=== PATIENT | female | born 1960 | race Caucasian/White ===

== ENCOUNTER → 2018-11-01 11:54 | Outpatient (CLI) | payer OTHER, MEDICAID, SELFPAY | PROVIDERS: PCP Family Medicine; Visit Provider Family Medicine | DX: E03.9 Hypothyroidism, unspecified (principal) | CPT/HCPCS: 36415; 84443 ==

== ENCOUNTER → 2018-11-18 10:50 | Outpatient (CLI) | payer OTHER, MEDICAID, SELFPAY ==
--- NOTE | 2018-11-18 10:51 | DI.MG.S_ITS ---
BILATERAL DIGITAL SCREENING MAMMOGRAM 3D/2D WITH CAD: 11/18/2018 CLINICAL: Routine screening. Family history of breast cancer. Comparison is made to exams dated: 11/18/2018 mammogram, 02/14/2017 mammogram, 02/08/2017 mammogram, and 12/14/2014 mammogram - [facility]. The tissue of both breasts is heterogeneously dense. This may lower the sensitivity of mammography. Current study was also evaluated with a Computer Aided Detection (CAD) system. No significant masses, calcifications, or other findings are seen in either breast. There has been no significant interval change. IMPRESSION: NEGATIVE There is no mammographic evidence of malignancy. A 1 year screening mammogram is recommended. This exam was interpreted at Station ID: [id number]. NOTE: For mammograms, a report in lay terms will be sent to the patient. Approximately 15% of breast malignancies will not be visualized mammographically. In the management of a palpable breast mass, a negative mammogram must not discourage biopsy of a clinically suspicious lesion. Electronically Signed By: Wil ty/ansley:11/18/2018 12:05:19 letter sent: Normal Exam ACR BI-RADS Category 1: Negative [id number]
== END ==
PROVIDERS: PCP Family Medicine; Visit Provider Family Medicine
DX: Z12.31 Encounter for screening mammogram for malignant neoplasm of breast (principal); Z80.3 Family history of malignant neoplasm of breast
CPT/HCPCS: 77063; 77067

== ENCOUNTER 2019-01-25 13:56 | Emergency (ER) | payer OTHER, MEDICAID, SELFPAY ==
[2019-01-25 14:05] VITALS: BP 128/88; PULSE 74; RESP 13; TEMP 37.1; O2SAT 99
--- NOTE | 2019-01-25 14:31 | ED.SOB ---
HPI - SOB/Dyspnea General Chief Complaint: Shortness of Breath/Dyspnea Stated Complaint: Inhaled a piece of hay Time Seen by Provider: 01/25/19 14:04 Source: patient Mode of arrival: ambulatory Limitations: no limitations History of Present Illness The patient is a 58-year-old female who states that she inhaled a piece of hay, 3 days ago. She feels that she still has some discomfort all in her neck and is worse whenever she takes a deep breath. She says she definitely inhaled she took a deep breath and felt something go down. She denies any fever or productive cough. She has no shortness of breath. MD Complaint: pain with inspiration Related Data Home Medications Medication Instructions Recorded Confirmed lamotrigine [Lamictal] 5 mg PO #0 02/27/17 11/15/18 acyclovir 400 mg tablet 800 mg PO 5XD 02/19/18 11/15/18 dextroamphetamine-amphetamine 20 20 mg PO DAILY tab 11/15/18 11/15/18 mg tablet quetiapine 50 mg tablet 100 mg PO BEDTIME tab 11/15/18 11/15/18 Previous Rx's Medication Instructions Recorded clindamycin 1 % topical gel 1 applictn TOP BID #30 gram 10/08/18 levothyroxine 125 mcg tablet 125 mcg PO DAILY #90 tab 12/06/18 metoprolol succinate ER 25 mg 25 mg PO DAILY #90 tab 12/20/18 tablet,extended release 24 hr Allergies Allergy/AdvReac Type Severity Reaction Status Date / Time Penicillins [PENICILLINS] Allergy Severe swelling Unverified 11/15/18 13:45 and rash hydromorphone [From DILAUDID] Allergy Mild Hives Unverified 11/15/18 13:45 Review of Systems Review of Systems ROS Unobtainable: All systems reviewed & are unremarkable except as noted in HPI and below Constitutional Denies chills, Denies fever(s), Denies lethargy and Denies weakness ENT Ears, Nose, Mouth, and Throat: Denies change in voice, Reports neck pain and Denies sore throat Cardiovascular Denies chest pain, Denies irregular heart rhythm, Denies lightheadedness, Denies palpitations and Denies orthopnea Gastrointestinal Gastrointestinal: Denies abdominal pain, Denies change in bowel habits, Denies diarrhea, Denies nausea and Denies vomiting Genitourinary Denies hematuria, Denies flank pain, Denies urinary incontinence and Denies urinary urgency Musculoskeletal Reports neck pain Neurologic Denies weakness Endocrine Denies palpitations [facility] Medical History Depression (Chronic ~1969) Hypothyroidism (Chronic) SVT (supraventricular tachycardia) (Chronic ~1996) Chronic back pain (Chronic ~2003) Herpes (Chronic ~1984) Sleep apnea (Chronic) Chicken pox (Resolved ~1966) Measles (Resolved) Mumps (Resolved) Surgical History Anesthesia (Resolved) History of bunionectomy (Resolved ~2013) Family History (Updated 02/18/18 @ 22:53 by Tiffanie Ojeda) Father Hypertension Mental health problem Stroke Depression Mother Cancer Mental health problem Depression Grandfather Heart disease Grandmother Stroke Grandfather Cancer Grandmother No problems noted. Social History marital status: number of children: 2 household members: family lives independently: Yes caregiver/support person: No housing: house education level: college Smoking Status: Never smoker second hand exposure: No alcohol intake: current substance use type: does not use Family History Father Hypertension Mental health problem Stroke Depression Mother Cancer Mental health problem Depression Grandfather Heart disease Grandmother Stroke Grandfather Cancer Grandmother No problems noted. Social History marital status: number of children: 2 household members: family lives independently: Yes caregiver/support person: No housing: house education level: college Smoking Status: Never smoker second hand exposure: No alcohol intake: current substance use type: does not use Exam Initial Vital Signs Initial Vital Signs: Vital Signs Temperature 98.8 F 01/25/19 14:05 Pulse Rate 74 01/25/19 14:05 Respiratory Rate 13 01/25/19 14:05 Blood Pressure 128/88 01/25/19 14:05 Pulse Oximetry 99 01/25/19 14:05 GENERAL: [Well-appearing, well-nourished] and in [no acute] distress. HEENT: Head atraumatic,EOMI, pupils reactive, face symmetric CARDIOVASCULAR: Regular rate and rhythm without murmurs, rubs or gallops. RESPIRATORY: Breath sounds equal bilaterally, no wheezes rales or rhonchi. ABDOMEN: Soft, nontender. Normoactive bowel sounds all 4 quadrants. No guarding or rebound. EXTREMITIES: Normal range of motion, no clubbing or edema. Neurovascularly intact NEUROLOGICAL: Alert and oriented x4.Normal gait and speech. Cranial nerves II through XII grossly intact. SKIN: Warm, dry, no laceration, no petechiae, no rashes or lesions. Course Consultations Consultation #1: Dr. Parker, on-call for surgery updated patient's symptoms test results no acute respiratory distress ongoing for the last 3 days. Not sure that a CT would be helpful. Emergent bronch certainly not indicated recommends talking with ENT to see if they may be able to do an outpatient evaluation. Time: 14:46 Consultation #2: I spoke with Dr. villasenor construction management instructor for ENT. At this time agrees with surgery no need for any sort of emergent intervention. He does recommend omeprazole twice a day sometimes this irritates and aggravates acid reflux. Often times organic material will dissolve on its own in as just scraped did irritated the inside. He is happy to see her in clinic on Sunday. Time: 14:46 Vital Signs - 8 hr 01/25/19 14:05 Temperature 98.8 F Pulse Rate 74 Respiratory Rate 13 Blood Pressure 128/88 Pulse Oximetry 99 MDM - SOB/Dyspnea MDM Narrative Medical decision making narrative: Patient is in no acute respiratory distress. Lungs are clear she does not appear septic she has no signs of pneumonia. At this time I do not think any imaging is indicated. I have discussed with her ENT and surgery recommendations. She agrees and will call ENT on Sunday for evaluation. Discharge Plan Departure Patient Disposition: Home Clinical Impression: Aspiration into airway Qualifiers: Encounter type: initial encounter Qualified Code(s): T17.908A - Unspecified foreign body in respiratory tract, part unspecified causing other injury, initial encounter Discharge Date/Time: 01/25/19 15:14 Interventions: ED Discharge Assessment Last Done: 01/25/19 15:13 Instructions: Aspiration Pneumonia Activity Restrictions/Additional Instructions: *You have been diagnosed with aspiration *What to do: It is likely that the piece of hay will dissolve or move all in its own. *Continue to take medications as directed Omeprazole 20 mg twice a day 30 minutes before meals *Follow up with Dr. Naveen villasenor, ENT. I spoke with him today he recommended to call the office on Sunday and someone should see you. It is likely that they will look into her throat and see if anything is there. However today it is not an emergency. *Return to ER if you should have fever, productive cough, increased shortness of breath, increased pain or any new, worsening or concerning symptoms Prescriptions: No Action lamotrigine [Lamictal] 5 MG tablet, chewable dispersible 5 mg PO Qty: 0 RF: 0 clindamycin phosphate 1 % gel 1 applictn TOP BID Qty: 30 RF: 0 levothyroxine 125 mcg tablet 125 mcg PO DAILY Qty: 90 RF: 3 metoprolol succinate [Toprol XL] 25 mg tablet extended release 24 hr 25 mg PO DAILY Qty: 90 RF: 1 acyclovir 400 mg tablet 800 mg PO 5XD RF: 0 quetiapine [Seroquel] 50 mg tablet 100 mg PO BEDTIME RF: 0 dextroamphetamine-amphetamine [Adderall] 20 mg tablet 20 mg PO DAILY RF: 0 Referrals: Ava Wong MD [Primary Care Provider] -
== END 2019-01-25 15:14 | disposition home or self-care (01) ==
PROVIDERS: Emergency Provider Emergency Medicine; PCP Family Medicine
DX: T17.908A Unspecified foreign body in respiratory tract, part unspecified causing other injury, initial encounter (principal)
CPT/HCPCS: 99282

== ENCOUNTER → 2019-08-15 13:40 | Outpatient (CLI) | payer OTHER, MEDICAID, SELFPAY ==
[2019-08-15 14:29] LABS: Appearance Urine UA CLOUDY; Bilirubin Urine UA NEGATIVE (NEGATIVE); Color Urine UA YELLOW; Glucose Urine UA NEGATIVE (Negative); Ketones Urine UA TRACE (NEGATIVE); Leukocyte Esterase Urine UA 2+ (NEGATIVE); Nitrite Urine UA NEGATIVE (Negative); Occult Blood Urine UA 2+ (Negative); Protein Urine UA 1+ (Negative); Specific Gravity Urine UA 1.025 (1.000-1.035); Urobilinogen Urine UA 0.2 E.U./dL (0.2)
[2019-08-15 14:40] LABS: Bacteria Urine Many (>30); Culture Indicated Urine Specimen Cultured; RBC Urine 10-30/HPF (0-5/HPF); Renal Epithelial Cells Urine 5-10/HPF (0-1/HPF); WBC Urine 10-30/HPF (0-5/HPF)
[2019-08-15 14:44] LABS: pH Urine UA 5.5 (4.5-8.0)
== END ==
PROVIDERS: PCP Family Medicine; Referring Provider Family Medicine; Visit Provider Family Medicine
DX: R30.0 Dysuria (principal); R35.0 Frequency of micturition
CPT/HCPCS: 81001; 87077; 87086; 87186

== ENCOUNTER → 2019-08-22 14:08 | Outpatient (CLI) | payer OTHER, MEDICAID, SELFPAY ==
[2019-08-22 14:22] LABS: Bacteria Urine None Seen; RBC Urine None Seen (0-5/HPF)
[2019-08-22 14:59] LABS: Appearance Urine UA CLEAR; Bilirubin Urine UA NEGATIVE (NEGATIVE); Color Urine UA YELLOW; Glucose Urine UA NEGATIVE (Negative); Ketones Urine UA NEGATIVE (NEGATIVE); Leukocyte Esterase Urine UA NEGATIVE (NEGATIVE); Nitrite Urine UA NEGATIVE (Negative); Occult Blood Urine UA NEGATIVE (Negative); Protein Urine UA NEGATIVE (Negative); Urobilinogen Urine UA 0.2 E.U./dL (0.2)
[2019-08-22 15:23] LABS: pH Urine UA 6.5 (4.5-8.0)
[2019-08-22 15:36] LABS: Culture Indicated Urine Cult Not Indicated; Mucus Urine 1+ (Negative); Squamous Epithelial Cell Urine 0-1 /HPF (0-5/HPF); WBC Urine 0-1/HPF (0-5/HPF)
== END ==
PROVIDERS: PCP Family Medicine; Referring Provider Family Medicine; Visit Provider Family Medicine
DX: N39.0 Urinary tract infection, site not specified (principal)
CPT/HCPCS: 81001

== ENCOUNTER 2019-11-21 17:10 | Emergency (ER) | payer OTHER, MEDICAID, SELFPAY ==
[2019-11-21 17:31] VITALS: BP 140/69; PULSE 73; RESP 17; TEMP 36.4; O2SAT 100; BMI 21.5
[2019-11-21 17:53] LABS: Bacteria Urine None Seen; RBC Urine None Seen (0-5/HPF)
[2019-11-21 18:22] LABS: Bilirubin Urine UA NEGATIVE (NEGATIVE); Glucose Urine UA NEGATIVE (Negative); Ketones Urine UA TRACE (NEGATIVE); Leukocyte Esterase Urine UA NEGATIVE (NEGATIVE); Nitrite Urine UA POSITIVE (Negative); Occult Blood Urine UA TRACE-INTACT (Negative); Protein Urine UA 1+ (Negative); Specific Gravity Urine UA >=1.030 (1.000-1.035)
[2019-11-21 18:24] LABS: Appearance Urine UA Cloudy; Color Urine UA Orange
[2019-11-21 18:46] LABS: Calcium Oxalate Crystals Urine Moderate; Culture Indicated Urine Cult Not Indicated; Squamous Epithelial Cell Urine 1-5 /HPF (0-5/HPF); WBC Urine 1-5/HPF (0-5/HPF)
--- NOTE | 2019-11-21 19:10 | ED_ITS ---
HPI - Female Genitourinary General Chief complaint: Urogenital-Female Stated complaint: STATES UTI Time Seen by Provider: 11/21/19 18:19 Source: patient Mode of arrival: Family Vehicle Limitations: no limitations History of Present Illness HPI Narrative: With a history of depression and occasional urinary tract infections presents today with 24 hours of increasing UTI type symptoms with dysuria and discomfort no hematuria no flank pain and a general feeling of malaise starting this morning. Her most recent UTI grew out pansensitive E coli on August 15. She also states it is not unusual for her developed a vaginal yeast infection after oral antibiotics. Related Data Home Medications Medication Instructions Recorded Confirmed lamotrigine [Lamictal] 5 mg PO #0 02/27/17 02/28/19 acyclovir 400 mg tablet 800 mg PO 5XD 02/19/18 02/28/19 dextroamphetamine-amphetamine 20 20 mg PO DAILY tab 11/15/18 02/28/19 mg tablet quetiapine 50 mg tablet 100 mg PO BEDTIME tab 11/15/18 02/28/19 Previous Rx's Medication Instructions Recorded clindamycin phosphate 1 % topical 1 applictn TOP BID #30 gram 10/08/18 gel levothyroxine 125 mcg tablet 125 mcg PO DAILY #90 tab 12/06/18 azithromycin 250 mg tablet See Rx Instructions PO .COMPLEX #6 02/28/19 tab metoprolol succinate 25 mg 25 mg PO DAILY #90 tab 07/30/19 tablet,extended release 24 hr fluconazole 150 mg tablet 150 mg PO Q3D #2 tab 08/15/19 phenazopyridine 200 mg tablet 200 mg PO TID PRN #6 tab 08/15/19 fluconazole 150 mg PO DAILY #1 tab 11/21/19 nitrofurantoin macrocrystal 100 mg PO BID #6 cap 11/21/19 Allergies Allergy/AdvReac Type Severity Reaction Status Date / Time Penicillins [PENICILLINS] Allergy Severe swelling Verified 11/21/19 17:35 and rash hydromorphone [From DILAUDID] Allergy Mild Hives Verified 11/21/19 17:35 Review of Systems Review of Systems Narrative: Pertinent positive and negative findings as per HPI Remainder of review of systems is otherwise unremarkable for Constitutional: Fevers, weakness ENT: No sore throat, neck pain, ear pain CV: Chest pain, palpitations, dyspnea on exertion Respiratory: Cough, wheeze, dyspnea GI: Nausea, vomiting, diarrhea, change in bowel habits, black or bloody stools : Dysuria, hematuria, flank pain MS: Muscle weakness, numbness, joint swelling or warmth Skin: Rashes, nonhealing lesions Neuro: Syncope, dizziness, tingling Patient History alcohol intake frequency: 0-2 drinks per day Substance Use Type: does not use Exam Narrative Exam Narrative: General: Alert appropriate in no acute distress Respiratory: Able to speak in full sentences, no obvious respiratory distress Skin: No obvious rashes, warm and dry Neurologic: Grossly intact no obvious asymmetries or abnormalities Psych, appropriate insight and affect, cooperative Abdominal: Minor suprapubic tenderness, no significant flank pain, good bowel tones, soft, nontender, nondistended Initial Vital Signs Initial Vital Signs: Vital Signs Temperature 97.6 F 11/21/19 17:31 Pulse Rate 73 11/21/19 17:31 Respiratory Rate 17 11/21/19 17:31 Blood Pressure 140/69 11/21/19 17:31 Pulse Oximetry 100 11/21/19 17:31 Course Orders Ordered: ED Orders 11/21/19 17:43 Urinalysis and Microscopic Stat 11/21/19 17:45 Urine Culture Stat Discontinued Medications Nitrofurantoin Macrocrystals (Macrobid 100 Mg Capsule) 100 mg PO NOW ONE Stop: 11/21/19 20:27 Last Admin: 11/21/19 20:46 Dose: 100 mg Documented by: MARY Vital Signs Vital signs: Vital Signs - 8 hr 11/21/19 19:25 11/21/19 20:51 Pulse Rate 71 72 Respiratory Rate 14 15 Blood Pressure 122/78 Blood Pressure [Left Arm] 159/91 H Pulse Oximetry [address] [facility] - Female Genitourinary Medical Records Attestation: I reviewed the patient's medical records. Lab Data Attestation: I reviewed the patient's lab results. Lab results narrative: Urine has trace ketones positive nitrates negative leukocyte esterase negative white blood cells negative red blood cells and moderate calcium oxalate. Culture will be obtained Labs: Lab Results 11/21/19 Range/Units 17:43 Urine Color [place] Urine Appearance Cloudy Urine pH 5.0 (4.5-8.0) Ur Specific [place] >=1.030 H (1.000-1.035) Urine Protein 1+ H (Negative) Urine Glucose (UA) Negative (Negative) g/dL Urine Ketones Trace H (NEGATIVE) Urine Occult Blood Trace-intact (Negative) Urine Nitrate Positive H (Negative) Urine Bilirubin Negative (NEGATIVE) Urine Urobilinogen 1.0 (0.2) E.U./dL Ur Leukocyte Esterase Negative (NEGATIVE) Urine RBC None seen (0-5/HPF) Urine WBC 1-5/hpf (0-5/HPF) Ur Squamous Epith Cells 1-5 /hpf (0-5/HPF) Calcium Oxalate Crystal Moderate H Urine Bacteria None seen (None) Ur Culture Indicated? Cult not indicated MDM Narrative Medical decision making narrative: Given her clinical presentation and positive nitrates will to this as a UTI with Macrobid given that she had a pansensitive E coli with her last visit. Will ask her to follow-up with Dr. Wong. Will also give her a single dose of Diflucan 150 mg to use should she develop vaginal yeast type symptoms. Discharge Plan Departure Patient Disposition: Home Clinical Impression: Cystitis Discharge Date/Time: 11/21/19 20:52 Instructions: DI for Urinary Tract Infection (UTI) Activity Restrictions/Additional Instructions: Thank you for coming in today. Your urine suggests a bladder infection and I have sent it for culture to completely confirm that. I am going to place you on Macrobid, and antibiotics specifically for bladder infections, the next 3 days. If you are continuing to have symptoms, please follow-up with Dr. Wong. Please also discussed with her some of the sensations of your bladder in uterus feeling like they are ?falling out?. This may be contributing to the dysuria sensation that your experiencing. As you have developed yeast infections after antibiotics, I am also sending in a prescription for Diflucan. If you are developing vaginal itching or discharge after stopping the antibiotics, the single dose of Diflucan should treat that. For developing fevers, notice blood in your urine, feel like symptoms are getting worse than it would be very appropriate to be re-evaluated. I hope you feel better quickly. Prescriptions: New nitrofurantoin macrocrystal 100 mg capsule 100 mg PO BID Qty: 6 RF: 0 fluconazole 150 mg tablet 150 mg PO DAILY Qty: 1 RF: 0 No Action azithromycin 250 mg tablet See Rx Instructions PO .COMPLEX Qty: 6 RF: 0 lamotrigine [Lamictal] 5 MG tablet, chewable dispersible 5 mg PO Qty: 0 RF: 0 clindamycin phosphate 1 % gel 1 applictn TOP BID Qty: 30 RF: 0 levothyroxine 125 mcg tablet 125 mcg PO DAILY Qty: 90 RF: 3 metoprolol succinate [Toprol XL] 25 mg tablet extended release 24 hr 25 mg PO DAILY Qty: 90 RF: 1 fluconazole 150 mg tablet 150 mg PO Q3D Qty: 2 RF: 0 phenazopyridine 200 mg tablet 200 mg PO TID PRN (Reason: pain) Qty: 6 RF: 0 acyclovir 400 mg tablet 800 mg PO 5XD RF: 0 quetiapine [Seroquel] 50 mg tablet 100 mg PO BEDTIME RF: 0 dextroamphetamine-amphetamine [Adderall] 20 mg tablet 20 mg PO DAILY RF: 0 Referrals: Ava Wong MD [Primary Care Provider] -
[2019-11-21 19:25] VITALS: BP 159/91; PULSE 71; RESP 14; O2SAT 97
[2019-11-21] MEDS: NITROFURANTOIN ER 100 MG CAPSULE PO (20:46)
[2019-11-21 20:51] VITALS: BP 122/78; PULSE 72; RESP 15; O2SAT 99
== END 2019-11-21 20:52 | disposition home or self-care (01) ==
PROVIDERS: Emergency Medicine; Emergency Provider Emergency Medicine; PCP Family Medicine
DX: N39.0 Urinary tract infection, site not specified (principal)
CPT/HCPCS: 81001; 87086; 99283

== ENCOUNTER → 2020-02-05 11:05 | Outpatient (CLI) | payer OTHER, MEDICAID, SELFPAY ==
[2020-02-05 13:01] LABS: Add Manual Diff / Slide Review NO; Basophils Absolute Auto 0 /uL (0-100); Basophils Percent Auto 0.5 % (0-2); Eosinophils Absolute Auto 100 /uL (0-450); Eosinophils Percent Auto 1.5 % (2-4); Hematocrit 38.2 % (36-46); Hemoglobin 12.8 g/dL (12.0-16.0); Lymphocytes Absolute Auto 1700 /uL (1100-4500); Lymphocytes Percent Auto 30.1 % (25-40); Mean Corpuscular HGB Conc 33.4 % (30-36); Mean Corpuscular Volume 92.9 fL (80-100); Monocytes Absolute Auto 600 /uL (0-900); Monocytes Percent Auto 10.2 % (3-14); Neutrophils Absolute Auto 3200 /uL (1500-7000); Neutrophils Percent Auto 57.7 % (50-75); Platelet Count 249 X10^3/uL (150-400); Red Blood Cell Count 4.12 X10^6/uL (4.0-5.2); White Blood Cell Count 5.6 X10^3/uL (4.5-11.0)
[2020-02-05 13:52] LABS: Alanine Aminotransferase 21 IU/L (<35); Albumin 4.4 g/dL (3.5-5.0); Albumin Globulin Ratio 1.6 (1.0-2.8); Alkaline Phosphatase 68 U/L (38-126); Aspartate Aminotransferase 35 IU/L (14-36); Bilirubin Total 0.7 mg/dL (0.2-1.3); Blood Urea Nitrogen 12 mg/dL (7-17); Calcium 9.7 mg/dL (8.4-10.2); Carbon Dioxide 28 mmol/L (22-32); Chloride 101 mmol/L (98-107); Cholesterol 186 mg/dL (140-199); Estimated Glomerular Filt Rate > 60.0 mL/min (>60); Globulin 2.7 g/dL (1.7-4.1); Glucose 87 mg/dL (70-100); HDL Cholesterol 97 mg/dL (40-60); HEMOLYSIS < 15 (0-50); LDL Cholesterol Calculated 80 mg/dL (<100); Potassium 4.3 mmol/L (3.4-5.1); Sodium 137 mmol/L (137-145); Total Protein 7.1 g/dL (6.3-8.2); Triglycerides 43 mg/dL (35-150)
[2020-02-05 14:12] LABS: Thyroid Stimulating Hormone 2.05 uIU/mL (0.47-4.68)
== END ==
PROVIDERS: PCP Family Medicine; Referring Provider Psychiatry & Neurology Psychiatry; Visit Provider Psychiatry & Neurology Psychiatry
DX: Z79.899 Other long term (current) drug therapy (principal)
CPT/HCPCS: 36415; 80053; 80061; 84443; 85025

== ENCOUNTER 2020-09-10 11:05 | Emergency (ER) | payer OTHER, MEDICAID, SELFPAY ==
[2020-09-10 11:11] VITALS: BP 179/95; PULSE 70; RESP 15; TEMP 36.1; O2SAT 99
--- NOTE | 2020-09-10 11:23 | PC.NURSE ---
right hand ring finger, under nail bed. some bleeding under nail. unable to see splinter. pt reports some of it came out
[2020-09-10] MEDS: TET,DIPH,PERTUSS(ACELL),VAC/PF 0.5 ML SYRINGE IM (13:08)
--- NOTE | 2020-09-10 14:03 | ED_ITS ---
HPI - Skin/Abscess/Foreign Bdy <MELISSA Springer - Last Filed: 09/10/20 14:13> General Chief complaint: Skin/Abscess/Foreign Body Stated complaint: Splinter in her right ring finger nail bed Time Seen by Provider: 09/10/20 12:11 Source: patient Mode of arrival: Ambulatory Limitations: no limitations History of Present Illness HPI narrative: This is a 60 year female, nonsmoker, who has no contributory medical history including diabetes presents to ED with chief complain of possible wood splint under right dominant ring finger under the nail. 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 Initially the injury appeared to be like flesh color but it has started to changing color to light brown as the wood chunk. Patient is unsure of last tetanus immunization. She reports mild discomfort on the affected site. Related Data Home Medications Medication Instructions Recorded Confirmed lamotrigine [Lamictal] 5 mg PO #0 02/27/17 09/07/20 acyclovir 400 mg tablet 800 mg PO 5XD 02/19/18 09/07/20 dextroamphetamine-amphetamine 20 20 mg PO DAILY tab 11/15/18 09/07/20 mg tablet quetiapine 50 mg tablet 100 mg PO BEDTIME tab 11/15/18 09/07/20 sertraline 50 mg tablet 50 mg PO DAILY 09/07/20 09/07/20 Previous Rx's Medication Instructions Recorded clindamycin phosphate 1 % topical 1 applictn TOP BID #30 gram 10/08/18 gel levothyroxine 125 mcg tablet 125 mcg PO DAILY #30 tab 09/07/20 metoprolol succinate 25 mg 25 mg PO BID #60 tab 09/07/20 tablet,extended release 24 hr doxycycline hyclate 100 mg PO BID 5 Days #10 tab 09/10/20 fluconazole [Diflucan] 150 mg PO Q3D #2 tab 09/10/20 Allergies Allergy/AdvReac Type Severity Reaction Status Date / Time Penicillins [PENICILLINS] Allergy Severe swelling Verified 09/07/20 13:29 and rash hydromorphone [From DILAUDID] Allergy Mild Hives Verified 09/07/20 13:29 Review of Systems <MELISSA Springer - Last Filed: 09/10/20 14:13> Review of Systems Narrative: General: Denies fever, chills, fatigue, malaise, sweats. Respiratory: Denies dyspnea, cough, wheezing, hemoptysis, sputum. Cardiovascular: Denies chest pain, palpitations, orthopnea, edema. Musculoskeletal: Denies weakness, joint pain or bony pain. Skin: See HPI Patient History <MELISSA Springer - Last Filed: 09/10/20 14:13> Medical History Chicken pox (~1966) Chronic back pain (~2003) Depression (~1969) Herpes (~1984) Hypothyroidism Measles Mumps Sleep apnea SVT (supraventricular tachycardia) (~1996) Surgical History Anesthesia History of bunionectomy (~2013) Family History Father Hypertension Mental health problem Stroke Depression Mother Cancer Mental health problem Depression Grandfather Heart disease Grandmother Stroke Grandfather Cancer Grandmother No problems noted. Social History marital status: number of children: 2 household members: family lives independently: Yes caregiver/support person: No housing: house education level: college Smoking Status: Never smoker second hand exposure: No alcohol intake: current substance use type: does not use Smoking Status: Never smoker alcohol intake frequency: 0-2 drinks per day Substance Use Type: does not use Exam <MELISSA Springer - Last Filed: 09/10/20 14:13> Narrative Exam Narrative: General appearance: well developed, well nourished, in no acute distress. Head: normocephalic, atraumatic, no scalp lesions, non-tender. ENT: Hearing grossly intact. Airway patent. Neck/Thyroid: neck supple, full range of motion, no visible masses or meningeal signs. No JVD, non-tender without lymphadenopathy. Skin: no suspicious rashes, lesions over visible areas. Warm and dry and appropriate color for ethnicity. Heart: no clubbing, no cyanosis, no edema. Lungs: Breathing even and unlabored. No stridor. No accessory muscles used. A ble to speak in full sentences. Chest: normal shape and expansion. Abdomen: non-obese, non-distended. Neurologic: alert and oriented. Cognitive exam, [employer] and PNS grossly intact on informal exam. Psych: good eye contact, normal affect. Initial Vital Signs Initial Vital Signs: Vital Signs Temperature 97.0 F L 09/10/20 11:11 Pulse Rate 70 09/10/20 11:11 Respiratory Rate 15 09/10/20 11:11 Blood Pressure 179/95 H 09/10/20 11:11 Pulse Oximetry 99 09/10/20 11:11 Skin Nails: discolored (Vertical linear brownish about 1 cm under R 4th fingernail w/o swelling) and other (No active bleeding, drainage. Discoloration flush to the nail) <Jenise Lozano DO - Last Filed: 09/11/20 18:10> Initial Vital Signs Initial Vital Signs: Vital Signs Temperature 97.0 F L 09/10/20 11:11 Pulse Rate 70 09/10/20 11:11 Respiratory Rate 15 09/10/20 11:11 Blood Pressure 179/95 H 09/10/20 11:11 Pulse Oximetry 99 09/10/20 11:11 Scores <MELISSA Springer - Last Filed: 09/10/20 14:13> GCS Margarette coma scale eye opening: Spontaneous Margarette coma scale verbal response: Orientated Margarette coma scale motor response: Obey commands Margarette coma scale total score: 15 Course <MELISSA Springer - Last Filed: 09/10/20 14:13> Orders Ordered: Discontinued Medications Diphtheria/Tetanus/Acell Pertussis (Tet,Diph,Pertuss(Acell),Vac/Pf 0.5 Ml Syringe) 0.5 ml IM .ONCE ONE Stop: 09/10/20 13:04 Last Admin: 09/10/20 13:08 Dose: 0.5 ml Documented by: JERMAN Vital Signs Vital signs: Vital Signs - 8 hr 09/10/20 11:11 Temperature 97.0 F L Pulse Rate 70 Respiratory Rate 15 Blood Pressure 179/95 H Pulse Oximetry 99 <Jenise Lozano DO - Last Filed: 09/11/20 18:10> Orders Ordered: Discontinued Medications Diphtheria/Tetanus/Acell Pertussis (Tet,Diph,Pertuss(Acell),Vac/Pf 0.5 Ml Syringe) 0.5 ml IM .ONCE ONE Stop: 09/10/20 13:04 Last Admin: 09/10/20 13:08 Dose: 0.5 ml Documented by: JERMAN Vital Signs Vital signs: Vital Signs - 8 hr 09/10/20 11:11 Temperature 97.0 F L Pulse Rate 70 Respiratory Rate 15 Blood Pressure 179/95 H Pulse Oximetry 99 MDM - Skin/Abscess/Foreign Bdy <Jose Jessica-CHAD MayerP - Last Filed: 09/10/20 14:13> Differential Diagnosis Differential diagnosis: Likely other (Foreign body under nail, soft tissue injury under nail w/o FB) Medical Records Attestation: I reviewed the patient's medical records. MDM Narrative Medical decision making narrative: This is a 60-year-old female who presents to ED with chief complain of possible a small piece about 1 cm length of wood splinter under right ring finger nail at work. She reports mild discomfort and is able to move affected finger with flexion and extension without difficulty. Attempted to remove a wood foreign body which was unsuccessful. Tetanus immunization was updated today with Tdap. Patient and I discussed a couple of options such as to monitor the nail while taking an antibiotic medications versus removing fingernail to get to the possible foreign body and in shared decision making she elected to soak affected finger in Epsom salt and started on antibiotic medication orally and to monitor signs and symptoms for infection/abscess formation and to return to ED for further evaluation. Discussed return precautions and she verbalized the the understanding. Discharge Plan Departure Patient Disposition: Home Clinical Impression: Foreign body (FB) in soft tissue Activity Restrictions/Additional Instructions: You have been diagnosed with [possible a wood splinter in right ring finger under the nail. Attempted to remove the foreign body which was unsuccessful. You have received Tdap update today.]. What to do: *Take your medications as directed. Please take antibiotic medication doxyc ycline twice a day for next 5 days. Diflucan also was ordered as needed up to 2 doses. Please use warm Epsom salt soak twice a day and use antibiotic ointment topically. Monitor for signs and symptoms for infection with increasing pain, swelling, redness, purulent discharge, warmth, or fever. As we discussed, if becomes worse please return to ED for an re-evaluation. Medication have been transmitted to [facility]. *Follow up with your primary care provider in 2-3 days, call for an appointment. Let them know you were seen in the ED and that we asked you to be seen in follow up. *Return to ED if you have any new, worsening, or concerning symptoms, such as [chest pain, breathing difficulty, unable to tolerate medications, signs and symptoms for infection/abscess as above or any acute concerns]. Prescriptions: New doxycycline hyclate 100 mg tablet 100 mg PO BID 5 Days Qty: 10 RF: 0 fluconazole [Diflucan] 150 mg tablet 150 mg PO Q3D Qty: 2 RF: 0 No Action sertraline 50 mg tablet 50 mg PO DAILY RF: 0 metoprolol succinate 25 mg tablet extended release 24 hr 25 mg PO BID Qty: 60 RF: 2 levothyroxine 125 mcg tablet 125 mcg PO DAILY Qty: 30 RF: 2 lamotrigine [Lamictal] 5 MG tablet, chewable dispersible 5 mg PO Qty: 0 RF: 0 clindamycin phosphate 1 % gel 1 applictn TOP BID Qty: 30 RF: 0 acyclovir 400 mg tablet 800 mg PO 5XD RF: 0 quetiapine [Seroquel] 50 mg tablet 100 mg PO BEDTIME RF: 0 dextroamphetamine-amphetamine [Adderall] 20 mg tablet 20 mg PO DAILY RF: 0 Referrals: Ava Wong MD [Primary Care Provider] - <Jenise Lozano DO - Last Filed: 09/11/20 18:10> Cosign ED Attending Vianca Attestation: I was immediately available in the department for consultation. Documentation has been reviewed.
== END 2020-09-10 13:18 | disposition home or self-care (01) ==
PROVIDERS: Emergency Provider Nurse Practitioner Family; PCP Family Medicine
DX: S60.454A Superficial foreign body of right ring finger, initial encounter (principal); W45.8XXA Other foreign body or object entering through skin, initial encounter; Z23 Encounter for immunization
CPT/HCPCS: 90471; 99281; 99283; 90715

== ENCOUNTER → 2021-09-27 15:45 | Outpatient (CLI) | payer OTHER, MEDICAID, SELFPAY ==
[2021-09-27 16:16] LABS: Add Manual Diff / Slide Review NO; Basophils Absolute Auto 0 /uL (0-100); Basophils Percent Auto 0.4 % (0-2); Eosinophils Absolute Auto 100 /uL (0-450); Hematocrit 38.9 % (36-46); Lymphocytes Absolute Auto 1700 /uL (1100-4500); Lymphocytes Percent Auto 29.8 % (25-40); Mean Corpuscular HGB Conc 33.3 % (30-36); Mean Corpuscular Hemoglobin 30.4 PG (26-34); Mean Corpuscular Volume 91.2 fL (80-100); Monocytes Absolute Auto 500 /uL (0-900); Monocytes Percent Auto 9.1 % (3-14); Neutrophils Absolute Auto 3400 /uL (1500-7000); Neutrophils Percent Auto 59.7 % (50-75); Platelet Count 270 X10^3/uL (150-400); Red Blood Cell Count 4.26 X10^6/uL (4.0-5.2); Red Cell Distribution Width 13.4 % (11.6-14.8); White Blood Cell Count 5.6 X10^3/uL (4.5-11.0)
[2021-09-27 16:33] LABS: Alanine Aminotransferase 17 IU/L (<35); Albumin 4.8 g/dL (3.5-5.0); Albumin Globulin Ratio 1.7 (1.0-2.8); Alkaline Phosphatase 68 U/L (38-126); Aspartate Aminotransferase 32 IU/L (14-36); BUN Creatinine Ratio 14.9 (6-22); Bilirubin Total 0.6 mg/dL (0.2-1.3); Blood Urea Nitrogen 13 mg/dL (7-17); Calcium 9.4 mg/dL (8.4-10.2); Carbon Dioxide 30 mmol/L (22-32); Chloride 99 mmol/L (98-107); Cholesterol 239 mg/dL (140-199); Estimated Glomerular Filt Rate > 60.0 mL/min (>60); Globulin 2.9 g/dL (1.7-4.1); Glucose 99 mg/dL (80-110); HEMOLYSIS < 15 (0-50); Sodium 137 mmol/L (137-145); Total Protein 7.7 g/dL (6.3-8.2); Triglycerides 54 mg/dL (35-150)
[2021-09-27 16:42] LABS: HDL Cholesterol 129 mg/dL (40-60); LDL Cholesterol Calculated 99 mg/dL (<100)
[2021-09-27 17:13] LABS: Thyroid Stimulating Hormone 6.34 uIU/mL (0.47-4.68)
== END ==
PROVIDERS: PCP Family Medicine; Referring Provider Family Medicine; Visit Provider Family Medicine
DX: E03.9 Hypothyroidism, unspecified (principal)
CPT/HCPCS: 36415; 80053; 80061; 84443; 85025

== ENCOUNTER → 2021-11-30 15:06 | Outpatient (CLI) | payer OTHER, MEDICAID, SELFPAY ==
[2021-11-30 18:29] LABS: TSH w/ Reflex to FT4 0.78 uIU/mL (0.47-4.68)
== END ==
PROVIDERS: PCP Family Medicine; Referring Provider Family Medicine; Visit Provider Family Medicine
DX: E03.9 Hypothyroidism, unspecified (principal)
CPT/HCPCS: 36415; 84443

== ENCOUNTER → 2022-10-26 13:35 | Outpatient (CLI) | payer OTHER, MEDICAID, SELFPAY | PROVIDERS: PCP Family Medicine; Visit Provider Student in an Organized Health Care Education/Training Program | DX: R30.0 Dysuria (principal); N89.8 Other specified noninflammatory disorders of vagina | CPT/HCPCS: 81002; 87086; 87210 ==

== ENCOUNTER → 2022-11-06 14:21 | Outpatient (CLI) | payer OTHER, MEDICAID, SELFPAY ==
[2022-11-06 15:22] LABS: Add Manual Diff / Slide Review NO; Basophils Absolute Auto 0 /uL (0-100); Basophils Percent Auto 0.6 % (0-2); Eosinophils Absolute Auto 100 /uL (0-450); Eosinophils Percent Auto 1.2 % (2-4); Hemoglobin 13.1 g/dL (12.0-16.0); Lymphocytes Absolute Auto 2100 /uL (1100-4500); Lymphocytes Percent Auto 39.9 % (25-40); Mean Corpuscular HGB Conc 34.5 % (30-36); Mean Corpuscular Hemoglobin 30.4 PG (26-34); Mean Corpuscular Volume 88.2 fL (80-100); Monocytes Absolute Auto 500 /uL (0-900); Monocytes Percent Auto 9.6 % (3-14); Neutrophils Absolute Auto 2500 /uL (1500-7000); Neutrophils Percent Auto 48.7 % (50-75); Platelet Count 277 X10^3/uL (150-400); Red Blood Cell Count 4.31 X10^6/uL (4.0-5.2); Red Cell Distribution Width 12.9 % (11.6-14.8); White Blood Cell Count 5.2 X10^3/uL (4.5-11.0)
[2022-11-06 15:46] LABS: Alanine Aminotransferase 22 IU/L (<35); Albumin 4.3 g/dL (3.5-5.0); Albumin Globulin Ratio 1.5 (1.0-2.8); Alkaline Phosphatase 72 U/L (38-126); Aspartate Aminotransferase 31 IU/L (14-36); BUN Creatinine Ratio 15.2 (6-22); Bilirubin Total 0.8 mg/dL (0.2-1.3); Blood Urea Nitrogen 12 mg/dL (7-17); Carbon Dioxide 28 mmol/L (22-32); Chloride 103 mmol/L (98-107); Cholesterol 229 mg/dL (140-199); Estimated Glomerular Filt Rate > 60 mL/min (>60); Globulin 2.9 g/dL (1.7-4.1); Glucose 85 mg/dL (80-110); HDL Cholesterol 101 mg/dL (40-60); HEMOLYSIS < 15 (0-50); LDL Cholesterol Calculated 119 mg/dL (<100); Potassium 3.6 mmol/L (3.4-5.1); Sodium 136 mmol/L (137-145); Total Protein 7.2 g/dL (6.3-8.2); Triglycerides 47 mg/dL (35-150)
[2022-11-06 16:12] LABS: TSH w/ Reflex to FT4 0.33 uIU/mL (0.47-4.68)
[2022-11-06 16:50] LABS: Free T4, Direct Thyroxine 2.11 ng/dL (0.78-2.19)
== END ==
PROVIDERS: PCP Family Medicine; Referring Provider Family Medicine; Visit Provider Family Medicine
DX: E03.9 Hypothyroidism, unspecified (principal); I47.1 Supraventricular tachycardia; Z13.220 Encounter for screening for lipoid disorders; Z79.899 Other long term (current) drug therapy
CPT/HCPCS: 36415; 80053; 80061; 84439; 84443; 85025

== ENCOUNTER → 2022-11-13 15:29 | Outpatient (CLI) | payer OTHER, MEDICAID, SELFPAY ==
--- NOTE | 2022-11-13 15:31 | DI.RAD.S_ITS ---
PROCEDURE: XR T AND L SPINE 4 TO 5 VIEWS INDICATIONS: Height loss Spinal curvature TECHNIQUE: 2 views acquired of the thoracolumbar spine. COMPARISON: None. FINDINGS: Bones: No acute fractures or dislocations. Visualized inferior ribs appear intact. No suspicious bony lesions. Mild S-shaped curvature of the lumbar spine, centered at L2, Woodson angle of 10?. Moderate disc height loss at all levels of the lumbar spine, with associated facet arthrosis at L4 through S1. Soft tissues: No suspicious soft tissue calcifications. IMPRESSION: Mild S-shaped curvature of the lumbar spine, centered at L2, with Woodson angle of 10?. Moderate, multilevel degenerative disc disease of the lumbar spine. Dictated by: John Ponce M.D. on 11/13/2022 at 16:48 Approved by: John Ponce M.D. on 11/13/2022 at 16:49
[2022-11-14 13:26] LABS: Fecal Immunochemical Test Negative (Negative)
== END ==
PROVIDERS: Physician Assistant; PCP Family Medicine; Referring Provider Family Medicine; Visit Provider Family Medicine
DX: Z12.11 Encounter for screening for malignant neoplasm of colon (principal); R29.890 Loss of height; M43.9 Deforming dorsopathy, unspecified
CPT/HCPCS: 72083; 82274

== ENCOUNTER → 2022-11-22 12:49 | Outpatient (CLI) | payer OTHER, MEDICAID, SELFPAY ==
--- NOTE | 2022-11-22 12:50 | DI.MG.S_ITS ---
BILATERAL DIGITAL SCREENING MAMMOGRAM 3D/2D WITH CAD: 11/22/2022 CLINICAL: Routine screening. Family history of breast cancer. Comparison is made to exams dated: 11/18/2018 mammogram, 02/08/2017 mammogram, and 12/14/2014 mammogram - [facility]. Both breasts are heterogeneously dense, which may obscure small masses (category c / 51-75% glandular tissue). Current study was also evaluated with a Computer Aided Detection (CAD) system. No significant masses, calcifications, or other findings are seen in either breast. There has been no significant interval change. IMPRESSION: NEGATIVE There is no mammographic evidence of malignancy. A 1 year screening mammogram is recommended. Based on the Tyrer Cuzick model (a risk assessment model) the patient's lifetime risk is 13.3% and her 10 year risk is 5.7%. According to the ACR, ACS, and NCCN guidelines, an annual breast MRI exam along with mammogram is recommended if the patient's lifetime risk is 20% or greater. This exam was interpreted at Station ID: [id number]. NOTE: For mammograms, a report in lay terms will be sent to the patient. Approximately 15% of breast malignancies will not be visualized mammographically. In the management of a palpable breast mass, a negative mammogram must not discourage biopsy of a clinically suspicious lesion. Electronically Signed By: Aroldo moss/ansley:11/22/2022 15:59:27 letter sent: Normal Exam ACR BI-RADS Category 1: Negative 3341F
--- NOTE | 2022-11-22 12:50 | DI.RAD.S_ITS ---
Bone Density Report Name: NAKITA OBRIEN Age: 62 Sex: Female Ethnicity: White Date of : 1960 Indication: postmenopausal; screening for osteoporosis; Referring Provider: POOJA CORTEZ Study: Bone densitometry was performed. Exam Date: November 22, 2022 Accession number: [id number] Bone Density: Region BMD T-score Z-score Classification AP Spine(L1, L2, L3) 1.087 0.6 2.1 Normal Femoral Neck (Left) 0.718 -1.2 0.2 Osteopenia Total Hip (Left) 0.844 -0.8 0.2 Normal Femoral Neck (Right) 0.776 -0.7 0.7 Normal Total Hip (Right) 0.902 -0.3 0.7 Normal Total Hip Mean 0.873 -0.6 0.5 Normal World Health Organization criteria for BMD impression classify patients as: Normal (T-score at or above -1.0), Osteopenia (T-score between -1.0 and -2.5), or Osteoporosis (T-score at or below -2.5). 10-year Fracture Risk(1): Major Osteoporotic Fracture 7.5% Hip Fracture 0.6% Reported Risk Factors: [place] (), Neck BMD=0.718, BMI=23.6 (1) FRAX(R) Version 3.08. Fracture probability calculated for an untreated patient. Fracture probability may be lower if the patient has received treatment. Impression: The patient has low bone mass, based on the Left Femoral Neck T-score. The patient has an estimated ten-year risk of hip fracture of 0.6% and an estimated ten-year risk of major fracture of 7.5%, based on the WHO FRAX algorithm. Discussion: BONE DENSITY IS LOW AT ONE OR MORE SKELETAL SITES. This patient's lowest T-score is low at one or more skeletal sites. It meets the World Health Organization's (WHO) criteria for low bone mass (T-score between -1.0 and -2.5). The patient's 10-year risk of fracture as calculated by FRAX is less than the threshold where pharmacological therapy is recommended by the National Osteoporosis Foundation (NOF). However, all treatment decisions require clinical judgment and consideration of individual patient factors, including patient preferences, comorbidities, previous drug use, risk factors not captured in the FRAX model (e.g., frailty, falls, vitamin D deficiency, increased bone turnover, interval significant decline in bone density) and possible under or overestimation of fracture risk by FRAX. The patient should follow a healthful lifestyle (good nutrition with adequate calcium and vitamin D, and appropriate weight-bearing exercise). Follow-Up: Consider repeating this study in 2 to 3 years to reassess this patient's status, or sooner if there is some new clinical indication. Reported by: DEBORAH FUENTES M.D. on 11/22/2022 3:28:00 PM.
== END ==
PROVIDERS: PCP Family Medicine; Referring Provider Physician Assistant; Visit Provider Physician Assistant
DX: Z12.31 Encounter for screening mammogram for malignant neoplasm of breast (principal); Z80.3 Family history of malignant neoplasm of breast
CPT/HCPCS: 77063; 77067; 77080

== ENCOUNTER → 2023-02-04 15:12 | Outpatient (CLI) | payer OTHER, SELFPAY | PROVIDERS: PCP Family Medicine; Visit Provider Physician Assistant | DX: J02.9 Acute pharyngitis, unspecified (principal) | CPT/HCPCS: 87070 ==

== ENCOUNTER → 2023-02-13 16:53 | Outpatient (CLI) | payer OTHER, SELFPAY ==
[2023-02-13 18:14] LABS: TSH w/ Reflex to FT4 2.83 uIU/mL (0.47-4.68)
== END ==
PROVIDERS: PCP Family Medicine; Referring Provider Physician Assistant; Visit Provider Physician Assistant
DX: R79.89 Other specified abnormal findings of blood chemistry (principal)
CPT/HCPCS: 36415; 84443

== ENCOUNTER → 2023-02-22 08:02 | Outpatient (CLI) | payer OTHER, SELFPAY | PROVIDERS: PCP Family Medicine; Referring Provider Family Medicine; Visit Provider Family Medicine | DX: R00.0 Tachycardia, unspecified (principal); R00.2 Palpitations | CPT/HCPCS: 93246 ==

== ENCOUNTER → 2023-03-09 07:45 | Outpatient (CLI) | payer OTHER, SELFPAY ==
--- NOTE | 2023-03-09 07:45 | DI.MRI.S_ITS ---
PROCEDURE: MR HUMERUS LT WO/W CON INDICATIONS: Lesion of bone Left humerus TECHNIQUE: Noncontrast coronal T1 spin echo and STIR, sagittal T1 spin echo with fat saturation and STIR, axial T1 spin echo and T2 fast spin echo with fat saturation. After the administration of contrast, axial/sagittal/coronal T1 spin echo with fat saturation through the left upper arm. COMPARISON: None. FINDINGS: Image quality: Excellent. Bones: Ill-defined slightly lobulated and heterogeneously T1 hypointense and T2 hyperintense area within medullary space of proximal to mid humeral shaft is seen with the entire area measures up to 11 cm in craniocaudal dimension and 1.4 x 1.6 cm in largest transverse and AP dimensions series 5, image 18 and series 8, image 18. After IV contrast infusion, mild heterogeneous contrast enhancement within this area is noted. No surrounding marrow edema. No adjacent cortical erosion or periosteal reaction. No other area of abnormal marrow signal or intraosseous enhancement is seen. No acute fracture or dislocation. Moderate acromioclavicular joint and glenohumeral joint osteoarthritic changes are seen. Soft tissues: No soft tissue masses are visualized. The scanned muscles demonstrate normal overall bulk and internal signal. Subcutaneous tissues appear normal as well. No abnormal soft tissue enhancement. IMPRESSION: 1. Ill-defined benign-appearing areas of heterogeneously T1 hypointense and T2 hyperintense signal within proximal to mid humeral shaft and show mild heterogeneous contrast enhancement as described above. Finding could represent benign process such as enchondroma versus areas of osteonecrosis secondary to prior injury. Clinical and radiographic follow-up is recommended. 2. No acute fracture or dislocation. No other area of abnormal marrow signal. [id number] acromioclavicular joint and glenohumeral joint osteoarthritis. 3. No enhancing soft tissue mass or drainable fluid collection. No upper arm muscle signal abnormalities. Dictated by: Mynor Bragg M.D. on 03/09/2023 at 10:33 Approved by: Mynor Bragg M.D. on 03/09/2023 at 10:46
== END ==
PROVIDERS: PCP Family Medicine; Referring Provider Physician Assistant; Visit Provider Physician Assistant
DX: M89.9 Disorder of bone, unspecified (principal); M19.012 Primary osteoarthritis, left shoulder
CPT/HCPCS: 73220

== ENCOUNTER → 2023-07-12 15:08 | Outpatient (CLI) | payer OTHER, SELFPAY ==
--- NOTE | 2023-07-13 12:52 | DI.NM.S_ITS ---
DATE OF SERVICE: 07/12/2023 PROCEDURE PERFORMED: Exercise treadmill stress test without imaging. ORDERING PROVIDER: Primo Díaz MD INDICATIONS: The patient is a 63-year-old female noted to have frequent PVCs on a recent ECG. FINDINGS: 1. The patient was able to exercise for 8 minutes 15 seconds on a standard Romulo protocol suggesting very good exercise capacity with an LENNY of -23%, achieving 10.1 METs. 2. She had a normal heart rate and blood pressure response to exercise, achieving a maximum heart rate of 155 BPM (98% of her predicted maximum). 3. She had no chest discomfort or anginal symptoms. 4. Her resting ECG shows sinus rhythm at [address] segments and no arrhythmias. With stress, there are no significant ST- segment shifts. She develops occasional isolated PVCs with exercise, rarely in couplets, but PVC frequency improves at peak exercise with only rare PVCs in recovery, briefly in a bigeminal pattern late in recovery, but no other complex arrhythmias. She remained asymptomatic. IMPRESSION: 1. Normal exercise treadmill stress test for ischemia. 2. Very good exercise capacity without angina. 3. Occasional PVCs with exercise, rarely in couplets, but improving at peak exercise with brief ventricular bigeminy in late recovery but no other complex arrhythmias. Shayy Canada - MYKE/ward/diomedes doc#: [id number]/job#: [id number] dd: 07/13/2023 12:26:00 dt: 07/13/2023 12:45:00 DICTATING MD/COPIES TO: Jorge Walsh MD; Primo Díaz MD COPIES MNE: JEFF;
== END ==
LOC: RAD 15:09
PROVIDERS: PCP Family Medicine; Referring Provider Internal Medicine Cardiovascular Disease; Visit Provider Internal Medicine Cardiovascular Disease
DX: R07.89 Other chest pain; I49.3 Ventricular premature depolarization
CPT/HCPCS: 93017

== ENCOUNTER → 2023-07-13 15:03 | Outpatient (CLI) | payer OTHER, SELFPAY ==
--- NOTE | 2023-07-13 15:04 | DI.ECHO.S_ITS ---
[facility] +---------+ [facility] +---------+ : : [address] [place] : : : : [id number] : : : : Phone: [phone]+ Echocardiogram Report + + :Name: NAKITA OBRIEN Study Date: 07/13/2023 Height: 69 in : :[facility] ReadingLocation: Weight: 164 lb : : Gender: Female BSA: 1.9 m2 : :: 1960 Age: 63 yrs BP: 137/86 mmHg: :Reason For Study: Arrhythmia : : Performed By: Citlaly Mauricio : :Referring: ANJALI DÍAZ : + + Interpretation Summary 1) Normal left ventricular thickness, size, and systolic function (EF 60-65%). 2) Normal right ventricular size and function. 3) No significant valvular abnormalities. 4) Compared to the Echo done 01/11/2011, no significant change. Procedure: A two-dimensional transthoracic echocardiogram with color flow and Doppler was performed. The study quality was technically adequate. Comparison is made with the echocardiogram of 01-11-11. The heart rate ranged between 70-76 bpm during the study. Left Ventricle: The left ventricle is normal in size and wall thickness. The ejection fraction is estimated to be 60-65%. There are no obvious focal wall motion abnormalities noted but poor endocardial definition reduces the sensitivity for the detection of such. Diastolic parameters suggest a relaxation abnormality of the left ventricle, consistent with probable normal filling pressures. Right Ventricle: The right ventricle is mildly dilated. The right ventricular systolic function is normal. Atria: The left atrium is moderately dilated. Right atrial size is normal. The interatrial septum grossly appears intact with no obvious evidence for an atrial septal defect. Mitral Valve: The mitral valve is grossly normal. There is trace mitral regurgitation. Aortic Valve: The aortic valve is trileaflet. The aortic valve opens well. The peak aortic velocity is 1.2 m/sec. The aortic valve mean gradient is 3.4 mmHg. There is no aortic valve stenosis. No aortic regurgitation is present. Tricuspid Valve: The tricuspid valve leaflets are thin and pliable. There is a trace or physiologic amount of tricuspid regurgitation. Pulmonic Valve: The pulmonic valve is not well seen, but is grossly normal. There is no pulmonic valvular regurgitation. Great Vessels: The aortic root is normal size. The ascending aorta is normal in size. The aortic arch is normal in size. The IVC is of normal diameter and collapses greater than 50% with a sniff. This suggests a low right atrial pressure of 3 mm Hg. Pericardium/ Pleura There is no pericardial effusion. There is no pleural effusion. MMode/2D Measurements & Calculations LVIDd: 4.8 cm LVOT diam: 2.4 cm LVIDs: 3.0 cm Ao root diam: 3.8 cm FS: 37.1 % asc Aorta Diam: 3.3 cm EPSS: 0.31 cm Ao Arch Diam (Prox Trans): 2.5 cm IVSd: 0.76 cm LVPWd: 0.77 cm LV lopez. diameter/BSA (cm/m^2): 2.5 LV sys. diameter/BSA (cm/m^2): 1.6 LA A2 area: 22.4 cm2 RA long axis: 5.3 cm LA A4 area: 21.5 cm2 RA area: 20.5 cm2 LA length (vol): 4.8 cm RA vol: 67.8 ml LA vol: 84.4 ml RA : 35.7 ml/m2 LA vol index: 44.4 ml/m2 IVC diam: 1.7 cm RVD1 (basal): 3.2 cm Doppler Measurements & Calculations Ao V2 max: 119.6 cm/sec MV E max juan: 80.2 cm/sec Ao V2 mean: 89.0 cm/sec MV A max juan: 56.4 cm/sec Ao max P.7 mmHg MV E/A: 1.4 Ao mean P.4 mmHg Med Peak E' Juan: 8.1 cm/sec Ao V2 VTI: 26.4 cm E/E' med: 9.9 Lat Peak E' Juan: 9.0 cm/sec E/E' lat: 9.0 E/e' average: 9.4 MV dec time: 0.19 sec TR max juan: 247.6 cm/sec TR max P.5 mmHg PA V2 max: 69.6 cm/sec PA V2 mean: 50.5 cm/sec PA mean P.1 mmHg PA pr(Accel): 7.1 mmHg Reading Physician:12:20 PM
== END ==
PROVIDERS: PCP Family Medicine; Referring Provider Internal Medicine Cardiovascular Disease; Visit Provider Internal Medicine Cardiovascular Disease
DX: I49.3 Ventricular premature depolarization (principal)
CPT/HCPCS: 93306

== ENCOUNTER → 2023-10-12 17:19 | Outpatient (CLI) | payer OTHER, SELFPAY ==
--- NOTE | 2023-10-12 17:21 | DI.MRI.S_ITS ---
PROCEDURE: MR SHOULDER LT WO/W CON INDICATIONS: Left humerus for pain, f/u bone lesion TECHNIQUE: Noncontrast oblique coronal T1 spin echo and T2 fast spin echo with fat saturation, oblique sagittal T1 spin echo and T2 fast spin echo with fat saturation, axial T1 spin echo and T2 fast spin echo with fat saturation through the shoulder. Post-contrast oblique coronal, oblique sagittal, and axial T1 spin echo with fat saturation through the shoulder. COMPARISON: [facility], , MR HUMERUS LT WO/W CON, 03/09/2023, 7:55. FINDINGS: Image quality: Excellent. Rotator cuff: Low-grade articular surface partial-thickness tear involving distal supraspinatus at its insertion on the humeral head is seen. Distal infraspinatus and subscapularis tendinosis is seen. No full-thickness rotator cuff tendon rupture. Sagittal images demonstrate no significant rotator cuff muscle atrophy. Bones and bursae: There is no marrow edema. No acute fracture or dislocation. 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 Previously described lobulated and heterogeneously T1 hypointense and T2 hyperintense area within medullary space of proximal to mid humeral shaft is again seen essentially unchanged in size and appearance compared to 03/09/2023 study best seen on series 10 image 17 and series 6, image 19. No associated marrow edema is seen. No adjacent cortical erosion or abnormal periosteal reaction is noted. Mild heterogeneous contrast enhancement is again seen within this region. No additional area of abnormal marrow signal is noted. Small to moderate joint effusion and subacromial subdeltoid bursal fluid is noted, no gross loose bodies. Capsule and soft tissues: No suspicious soft tissue enhancement. Labrum is grossly intact. The long head of the biceps tendon demonstrates normal location and morphology. The rotator interval appears normal, without fibrosis. The coracohumeral ligament is normal in thickness. IMPRESSION: 1. Interval stable in size and appearance of patient's known area of heterogeneously T1 hypointense and T2 hyperintense signal within left proximal to mid humeral shaft medullary space without associated marrow edema or abnormal cortical erosion or destruction. Mild heterogeneous contrast enhancement is again seen within this area. Overall finding still is suggestive of benign process such as enchondroma versus areas of osteonecrosis secondary to prior injury. Consider continued radiographic and clinical follow-up to ensure stability. 2. No new area of abnormal enhancement or intraosseous lesion. No acute fracture or dislocation. [id number] acromioclavicular joint osteoarthritis. Small to moderate joint effusion and subacromial subdeltoid bursal fluid, no gross loose bodies. 3. Tendinosis and low-grade articular surface partial-thickness tear involving distal supraspinatus at its insertion on the humeral head. Distal infraspinatus and subscapularis tendinosis. No full-thickness rotator cuff tendon rupture. 4. No gross focal labral tear. No enhancing soft tissue mass or drainable fluid collection. No area of abnormal intramuscular enhancement. Dictated by: Mynor Bragg M.D. on 10/15/2023 at 8:24 Approved by: Mynor Bragg M.D. on 10/15/2023 at 9:40
== END ==
LOC: MRI 17:20
PROVIDERS: PCP Family Medicine; Referring Provider Family Medicine; Visit Provider Family Medicine
DX: M89.8X2 Other specified disorders of bone, upper arm (principal); M75.112 Incomplete rotator cuff tear or rupture of left shoulder, not specified as traumatic; M19.012 Primary osteoarthritis, left shoulder; M25.412 Effusion, left shoulder; M89.9 Disorder of bone, unspecified
CPT/HCPCS: 73223; A9579

== ENCOUNTER → 2023-11-29 12:24 | Outpatient (CLI) | payer OTHER, SELFPAY ==
[2023-11-29 14:33] LABS: Alanine Aminotransferase 21 IU/L (<35); Albumin 4.5 g/dL (3.5-5.0); Albumin Globulin Ratio 1.7 (1.0-2.8); Alkaline Phosphatase 78 U/L (38-126); Aspartate Aminotransferase 33 IU/L (14-36); BUN Creatinine Ratio 15.9 (6-22); Bilirubin Total 0.9 mg/dL (0.2-1.3); Blood Urea Nitrogen 11 mg/dL (7-17); Calcium 9.2 mg/dL (8.4-10.2); Carbon Dioxide 29 mmol/L (22-32); Chloride 104 mmol/L (98-107); Cholesterol 237 mg/dL (140-199); Estimated Glomerular Filt Rate > 60 mL/min (>60); Globulin 2.6 g/dL (1.7-4.1); Glucose 96 mg/dL (80-110); HEMOLYSIS < 15 (0-50); Potassium 4.5 mmol/L (3.4-5.1); Sodium 137 mmol/L (137-145); Total Protein 7.1 g/dL (6.3-8.2); Triglycerides 59 mg/dL (35-150)
[2023-11-29 14:45] LABS: HDL Cholesterol 123 mg/dL (40-60); LDL Cholesterol Calculated 102 mg/dL (<100)
[2023-11-29 14:55] LABS: T4 Total Thyroxine 8.39 ug/dL (5.5-11.0); T7 (Free Thyroxine Index) 2.98 (1.65-3.89); Triiodothryronine T3 Uptake 35.5 % (23.5-40.5)
[2023-11-29 15:07] LABS: Thyroid Stimulating Hormone 0.678 uIU/mL (0.47-4.68)
== END ==
LOC: LAB 12:26
PROVIDERS: PCP Family Medicine; Referring Provider Psychiatry & Neurology Psychiatry; Visit Provider Psychiatry & Neurology Psychiatry
DX: Z79.899 Other long term (current) drug therapy (principal)
CPT/HCPCS: 36415; 80053; 80061; 83036; 84436; 84443; 84479

== ENCOUNTER → 2025-01-31 15:42 | Outpatient (CLI) | payer OTHER, SELFPAY | PROVIDERS: PCP Family Medicine; Visit Provider Chiropractor | DX: R30.0 Dysuria (principal) | CPT/HCPCS: 87086 ==

== ENCOUNTER → 2025-03-09 15:29 | Outpatient (CLI) | payer OTHER, SELFPAY ==
[2025-03-09 16:51] LABS: Alanine Aminotransferase 21 IU/L (<35); Albumin 4.5 g/dL (3.5-5.0); Albumin Globulin Ratio 1.6 (1.0-2.8); Alkaline Phosphatase 61 U/L (38-126); Blood Urea Nitrogen 13 mg/dL (7-17); Calcium 9.5 mg/dL (8.4-10.2); Carbon Dioxide 29 mmol/L (22-32); Chloride 100 mmol/L (98-107); Cholesterol 221 mg/dL (140-199); Estimated Glomerular Filt Rate > 60 mL/min (>60); Globulin 2.8 g/dL (1.7-4.1); Glucose 98 mg/dL (70-99); HDL Cholesterol 97 mg/dL (40-60); HEMOLYSIS < 15 (0-50); Potassium 4.1 mmol/L (3.4-5.1); Sodium 137 mmol/L (137-145); Total Protein 7.3 g/dL (6.3-8.2); Triglycerides 118 mg/dL (35-150)
[2025-03-09 17:21] LABS: Thyroid Stimulating Hormone 0.417 uIU/mL (0.47-4.68)
== END ==
PROVIDERS: PCP Family Medicine; Referring Provider Family Medicine; Visit Provider Family Medicine
DX: E03.9 Hypothyroidism, unspecified (principal)
CPT/HCPCS: 36415; 80053; 80061; 84443